=== PATIENT | female | born 1935 | race Hispanic/Latino ===

== ENCOUNTER → 2018-05-14 | Outpatient (CLI) | payer OTHER, MEDICARE | LOC: MAMMO 07:48 | PROVIDERS: ATTEND Internal Medicine | DX: Z12.31 Encounter for screening mammogram for malignant neoplasm of breast (principal) | CPT/HCPCS: 77067 ==

== ENCOUNTER → 2019-07-12 | Day surgery (SDC) | payer MEDICARE ==
[2019-07-06 11:44] LABS: BASOPHILS # (AUTO) 0.1 (0.0-0.1); BASOPHILS % 1.2 % (0.0-1.0); EOSINOPHILS # (AUTO) 0.1 (0.0-0.4); EOSINOPHILS % 1.4 % (0.0-6.0); HEMATOCRIT 33.5 % (34.2-44.1); HEMOGLOBIN 10.8 g/dL (12.0-16.0); LYMPHOCYTES # (AUTO) 1.4 (1.0-3.2); LYMPHOCYTES % 32.6 % (18.0-39.1); MEAN CORPUSCULAR HEMOGLOBIN 30.1 pg (28-32); MEAN CORPUSCULAR HGB CONC 32.2 g/dL (31-35); MEAN CORPUSCULAR VOLUME 93.3 fL (81-99); MONOCYTES # (AUTO) 0.4 (0.2-0.8); MONOCYTES % 10.2 % (4.4-11.3); NEUTROPHILS # (AUTO) 2.3 (2.1-6.9); NEUTROPHILS % 54.4 % (38.7-80.0); PLATELET COUNT 203 x10e3/uL (140-360); RED BLOOD COUNT 3.59 x10e6/uL (3.6-5.1); RED CELL DISTRIBUTION WIDTH 11.5 % (11.7-14.4)
--- NOTE | 2019-07-06 14:05 | Diagnostic Imaging Report ---
Chest, 2 views, 07/06/2019. History: Preop. L89.93 Comparison: None available. Findings: The cardiomediastinal silhouette and pulmonary vasculature are within normal limits. Calcified granuloma is noted in the left apex. The lungs are clear without evidence of consolidation or pleural effusion. Degenerative changes are noted in the thoracic spine. There are no acute osseous or soft tissue abnormalities. Impression: No acute cardiopulmonary abnormality. Signed by: Joshua Levy on 07/06/2019 2:01 PM
[~2019-07-12] MED LIST: BACITRACIN 50,000 UNIT VIAL ONE; BP MED PO; BUPIVACAINE HCL 0.5% INJ 30 ML VIAL INJ ONE; CEFAZOLIN SOD 1 GM/NS 50ML 100 ML IV ONE; CEPHALEXIN500 MG PO; DEXAMETHASONE SOD PHOS INJ 4 MG/ML VIAL ONE; FENTANYL CITRATE/PF 100MCG/2 ML INJ ONE; LIDOCAINE HCL 2% LOCAL INJ 5 ML SDV VIAL INJ ONE; ONDANSETRON HCL INJ 2MG/ML 2ML 2 MG/ML VIAL ONE; PROPOFOL IV EMULSION 10 MG/ML 20 ML VIAL ONE; SEVOFLURANE INHAL SOLN 250 ML PEN BTL ONE; ULTRAM50 MG PO
--- OUTSIDE RECORDS SUMMARY | 2019-07-12 08:19 | XMS REPORT ---
Author Author [facility] Address Unknown Phone Unavailable Care Team Providers Care Lighter Name Role Phone EVAN [place] Unavailable Unavailable Connie DE LEON Unavailable Unavailable Problems This patient has no known problems. Allergies, Adverse Reactions, Alerts This patient has no known allergies or adverse reactions. Medications This patient has no known medications. Results Test Description Test Time Test Comments Text Results Atomic Results Result Comments CHEST 2 VIEWS 2019-07-06 14:00:00 [place] [address] Patient Name: JACQUI SMALLS MR #: [id number] : 1935 Age/Sex: 84/F Req #: [id number] Adm Physician: Ordered by: EVAN OH DP Report #: [id number] Location: OR Room/Bed: Procedure: [id number] DX/CHEST 2 VIEWS Exam Date: Exam Time: REPORT STATUS: Signed Chest, 2 views, 07/06/2019. History: Preop. L89.93 Comparison: None available. Findings: The cardiomediastinal silhouette and pulmonary vasculature are within normal limits. Calcified granuloma is noted in the left apex. The lungs are clear without evidence of consolidation or pleural effusion. Degenerative changes are noted in the thoracic spine. There are no acute osseous or soft tissue abnormalities. Impression: No acute cardiopulmonary abnormality. Signed by: Nimco Levy on 07/06/2019 2:01 PM Dictated By: NIMCO LEVY MD 00 Transcribed By: JONNA on 07/06/191400 COPY TO: EVAN OH DPM SCR MAMM BILATERAL CLARE CAD DIGITAL 2019-02-15 09:20:37 - SCR MAMM BILATERAL CLARE CAD DIGITALBILATERAL DIGITAL SCREENING MAMMOGRAM 3D/2D WITH CAD: 02/10/2019CLINICAL: Asymptomatic. Digital breast tomosynthesis was performed in addition to routine CC and MLO views. Current mammographic images were evaluated by either a [employer] M-Vu or a [employer] Dynamoer CAD (computer aided detection system). No prior exams are currently available for comparison. The tissue of both breasts is heterogeneously dense. This may lower the sensitivity of mammography. There are benign calcifications and vascular calcification in the right breast. There is a benign calcification in a left axillary lymph node and vascular calcification in the left breast.There also are benign-appearing asymmetries in the right breast. Additionally, there is a benign intramammary node in the left breast. No suspicious mass, architectural distortion, malignant type calcification, or lymph node abnormality detected. IMPRESSION: BENIGNThere is no mammographic evidence of malignancy. Resume annual screening mammography in one year. The patient is unable to recall the location where prior mammograms were obtained. Please advise if your office has a record of prior studies so that attempts can be made to obtain prior mammograms for comparison.Paulo Ruggiero M.D. rb/:02/15/2019 09:20:37 [place] Deckhand: Cece COLLINS, [facility]-FWletter sent: BIRADS 1-2 Normal Mammogram BI-RADS: 2 Benign MAMMOGRAPHY DIGITAL SCR BILAT 2018-05-14 10:17:00 [place] [address] Patient Name: JACQUI SMALLS MR #: [id number] : 1935 Age/Sex: 83/F Req #: [id number] Adm Physician: Ordered by: SHEILA DE LEON MD Report #: [id number] Location: MAMMO Room/Bed: Procedure: [id number] MG/MAMMOGRAPHY DIGITAL SCR BILAT Exam Date: 05/14/18 Exam Time: 941 REPORT STATUS: Signed #[id number] - MGSCRBIL #BILATERAL DIGITAL SCREENING MAMMOGRAM WITH CAD: 05/14/2018 CLINICAL: Routine screening. Comparison is made to exams dated: 03/04/2016 mammogram and 03/01/2014 mammogram - [facility]. The tissue of both breasts is heterogeneously dense. This may lower the sensitivity of mammography. Current study was also evaluated with a Computer Aided Detection (CAD) system. No new significant masses, calcifications, or other findings are seen in either breast. IMPRESSION: BENIGN There is no mammographic evidence of malignancy. A 1 year screening mammogram is recommended. The patient will be notified by letter of the results. Chris Davenport M.D. ks/:05/18/2018 10:51:11 [place] De[employer]hand: Marly WHITNEY(R)(M), [facility] letter sent: Normal Exam Mammogram BI-RADS: 2 Benign Dictated By: CHRIS DAVENPORT MD 105 Transcribed By: SUMA on 05/18/18 105 COPY TO: SHEILA DE LEON MD
[2019-07-12 11:53] VITALS: BP 126/91
--- NOTE | 2019-07-12 12:56 | Operative Report ---
DATE OF PROCEDURE: 07/12/2019 SURGEON: Anila Bowen DPM PREOPERATIVE DIAGNOSES: 1. Chronic ulcer full thickness, right 3rd. 2. Hammertoe with exostosis, right 3rd. POSTOPERATIVE DIAGNOSES: 1. Chronic ulcer full thickness, right 3rd. 2. Hammertoe with exostosis, right 3rd. PROCEDURES: 1. Ulcer debridement to include capsule and bone, right 3rd. 2. Exostosis, right 3rd. PATHOLOGY: None. ANESTHESIA: General anesthetic. HEMOSTASIS: Pneumatic ankle tourniquet. ESTIMATED BLOOD LOSS: Less than 10 mL. MATERIALS: A 2 x 2 human allograft for the area of the ulcer. COMPLICATIONS: None. CONDITION: Stable. PROCEDURE IN DETAIL: Under mild sedation, the patient was brought to the operative room, and placed on the operating table in supine position. Following IV sedation, anesthesia was obtained with a general anesthetic. At this point, the right foot scrubbed, prepped, and draped in the usual aseptic manner; it was then lowered to the table. Attention was directed to the medial aspect of the right 3rd, where two curvilinear incisions were made overlying the ulcer. The ulcer was down to the level of the capsule. The ulcer was then removed, it was sent for pathology. At this point, the exostosis, that was causing the area of pressure at the 3rd digit, was removed utilizing an oscillating saw. The area was made smooth. There was no longer any bony prominences left to the area. The area was then flushed with copious amount of normal sterile saline solution, bacitracin. Human allograft was then inserted into the area of the ulcer and the ulcer was closed with 4-0 nylon. Clean dressing was applied consisting of Adaptic, Betadine wet-to-dry, 4x4s, Kerlix, and an Tevin bandage. The patient tolerated the procedure and anesthesia well without complications, was transferred to recovery room, will be discharged home when she meets criteria. She was given instructions to be partial weightbearing with a postop shoe and a walker to elevate at home to follow up with me in the clinic and to call the office if any questions, concerns, or new problems arise. Anila Bowen DPM ER/MODL /[id number]
== END | disposition home or self-care (01) ==
LOC: OR 08:16
PROVIDERS: ATTEND Podiatrist Foot & Ankle Surgery
DX: M86.671 Other chronic osteomyelitis, right ankle and foot (principal); L97.519 Non-pressure chronic ulcer of other part of right foot with unspecified severity; M20.41 Other hammer toe(s) (acquired), right foot; M89.8X7 Other specified disorders of bone, ankle and foot; M19.90 Unspecified osteoarthritis, unspecified site; I10 Essential (primary) hypertension; E78.5 Hyperlipidemia, unspecified; Z88.6 Allergy status to analgesic agent; Z01.810 Encounter for preprocedural cardiovascular examination; Z01.812 Encounter for preprocedural laboratory examination; Z01.818 Encounter for other preprocedural examination
CPT/HCPCS: 11044; 36415; 71046; 85025; 88305; 88311; 93005; J0690; J1100; J2001; J2405; J2704; J3010; Q4150

== ENCOUNTER 2024-09-26 17:23 | Emergency (ER) | payer MEDICARE ==
[~2024-09-26] VITALS: Ht 152.4 cm; Wt 47.6 kg
[~2024-09-26 17:23] MED LIST changes: +ASPIRIN EC81 MG PO; +ASPIRIN81 MG PO; +ATORVASTATIN CA20 MG PO; -BACITRACIN 50,000 UNIT VIAL ONE; -BUPIVACAINE HCL 0.5% INJ 30 ML VIAL INJ ONE; -CEFAZOLIN SOD 1 GM/NS 50ML 100 ML IV ONE; -DEXAMETHASONE SOD PHOS INJ 4 MG/ML VIAL ONE; -FENTANYL CITRATE/PF 100MCG/2 ML INJ ONE; -LIDOCAINE HCL 2% LOCAL INJ 5 ML SDV VIAL INJ ONE; +LOSARTAN POTAS100 MG PO; +METOPROLOL TART25 MG PO; -ONDANSETRON HCL INJ 2MG/ML 2ML 2 MG/ML VIAL ONE; +PLAVIX75 MG PO; -PROPOFOL IV EMULSION 10 MG/ML 20 ML VIAL ONE; -SEVOFLURANE INHAL SOLN 250 ML PEN BTL ONE
[2024-09-26 18:08] LABS: BASOPHILS # (AUTO) 0.1 (0.0-0.1); BASOPHILS % 0.8 % (0.0-1.0); EOSINOPHILS # (AUTO) 0.2 (0.0-0.4); EOSINOPHILS % 2.1 % (0.0-6.0); HEMATOCRIT 34.6 % (34.2-44.1); HEMOGLOBIN 11.2 g/dL (12.0-16.0); LYMPHOCYTES # (AUTO) 1.8 (1.0-3.2); LYMPHOCYTES % 22.5 % (18.0-39.1); MEAN CORPUSCULAR HGB CONC 32.4 g/dL (31-35); MEAN CORPUSCULAR VOLUME 92.8 fL (81-99); MONOCYTES # (AUTO) 0.7 (0.2-0.8); MONOCYTES % 9.1 % (4.4-11.3); NEUTROPHILS # (AUTO) 5.2 (2.1-6.9); PLATELET COUNT 330 x10e3/uL (140-360); RED BLOOD COUNT 3.73 x10e6/uL (3.6-5.1); RED CELL DISTRIBUTION WIDTH 14.9 % (11.7-14.4); WHITE BLOOD COUNT 7.95 x10e3/uL (4.8-10.8)
[2024-09-26 18:30] LABS: COLOR,URINE YELLOW (YELLOW)
[2024-09-26 18:31] LABS: BILIRUBIN,URINE NEGATIVE (NEGATIVE); CLARITY,URINE SL CLOUDY (CLEAR); GLUCOSE, URINE NEGATIVE (NEGATIVE); KETONES,URINE NEGATIVE (NEGATIVE); LEUKOCYTE ESTERASE ,URINE MODERATE (NEGATIVE); NITRITE,URINE NEGATIVE (NEGATIVE); PH,URINE 6 (5 - 7); PROTEIN,URINE DIPSTICK 2+ (NEGATIVE); URINE UROBILINOGEN 1 mg/dL (0.2 - 1)
[2024-09-26 18:32] LABS: ALBUMIN 2.7 g/dL (3.5-5.0); ALBUMIN/GLOBULIN RATIO 0.6 (0.8-2.0); ANION GAP 15.2 mmol/L (8-16); BILIRUBIN,TOTAL 0.5 mg/dL (0.2-1.2); CALCIUM 9.6 mg/dL (8.4-10.2); CREATININE, SERUM 0.5 mg/dL (0.57-1.11); POTASSIUM 4.2 mmol/L (3.5-5.1); TOTAL PROTEIN 7.5 g/dL (6.5-8.1)
[2024-09-26 18:33] LABS: BACTERIA,URINE MODERATE /HPF; WBC,URINE (MAN) >50 /HPF (0-5)
[2024-09-26 18:34] LABS: CALCIUM OXALATE CRYSTALS,UR RARE (FEW); EPITHELIAL CELLS,URINE RARE /LPF
[2024-09-26] MEDS ORDERED: IOPAMIDOL 370 MG/ML 100 ML INFUS..BTL INJ ONE (18:53)
[2024-09-26] MEDS ORDERED: ACETAMINOPHEN 1000 MG/100 ML 100 ML IV ONE (20:07)
[2024-09-26] MEDS ORDERED: CEFTRIAXONE 1 GM VIAL ONE (20:14)
[2024-09-26] MEDS: ACETAMINOPHEN 1000 MG/100 ML IV STA (20:23)
[2024-09-26 20:47] VITALS: TEMP 98.5
[2024-09-26 21:44] VITALS: PULSE 64; RESP 18
[2024-09-26 22:18] VITALS: BP 124/58; PULSE 59; RESP 18; TEMP 98; O2SAT 100
== END 2024-09-26 22:18 | disposition other institution (70) ==
LOC: ER 17:49
DX: R14.0 Abdominal distension (gaseous) (principal); K59.00 Constipation, unspecified; N39.0 Urinary tract infection, site not specified; G93.9 Disorder of brain, unspecified; I10 Essential (primary) hypertension; I25.2 Old myocardial infarction; I69.354 Hemiplegia and hemiparesis following cerebral infarction affecting left non-dominant side
CPT/HCPCS: 36415; 70450; 74177; 80053; 81001; 85025; 87086; 99285; J0131; J0696; Q9967

== ENCOUNTER 2024-12-13 13:55 | Emergency (ER) | payer MEDICARE ==
[~2024-12-13] VITALS: Ht 152.4 cm; Wt 43.1 kg
[2024-12-13 14:28] LABS: BASOPHILS # (AUTO) 0.1 (0.0-0.1); EOSINOPHILS # (AUTO) 0.1 (0.0-0.4); HEMATOCRIT 31.6 % (34.2-44.1); HEMOGLOBIN 10.1 g/dL (12.0-16.0); LYMPHOCYTES # (AUTO) 1.8 (1.0-3.2); LYMPHOCYTES % 28.9 % (18.0-39.1); MEAN CORPUSCULAR HEMOGLOBIN 29.8 pg (28-32); MEAN CORPUSCULAR VOLUME 93.2 fL (81-99); MONOCYTES # (AUTO) 0.6 (0.2-0.8); MONOCYTES % 10.4 % (4.4-11.3); NEUTROPHILS # (AUTO) 3.5 (2.1-6.9); NEUTROPHILS % 57.2 % (38.7-80.0); PLATELET COUNT 307 x10e3/uL (140-360); RED BLOOD COUNT 3.39 x10e6/uL (3.6-5.1); RED CELL DISTRIBUTION WIDTH 14.5 % (11.7-14.4); WHITE BLOOD COUNT 6.08 x10e3/uL (4.8-10.8)
[2024-12-13 14:42] LABS: INR 0.95; PROTHROMBIN TIME 13.3 seconds (11.9-14.5)
[2024-12-13 14:43] LABS: PARTIAL THROMBOPLASTIN TIME 30.6 seconds (23.8-35.5)
[2024-12-13 14:47] LABS: ALBUMIN 3.1 g/dL (3.5-5.0); ALBUMIN/GLOBULIN RATIO 0.7 (0.8-2.0); ANION GAP 13.3 mmol/L (8-16); BILIRUBIN,TOTAL 0.3 mg/dL (0.2-1.2); CALCIUM 9.1 mg/dL (8.4-10.2); CREATININE, SERUM 0.61 mg/dL (0.57-1.11); POTASSIUM 4.3 mmol/L (3.5-5.1); TOTAL PROTEIN 7.6 g/dL (6.5-8.1)
[2024-12-13 14:52] LABS: TROPONIN I 0.003 ng/mL (0-0.300)
[2024-12-13] MEDS: DEXAMETHASONE SOD PHOS 10 MG/1 ML VIAL IV ONE (15:01)
[2024-12-13] MEDS: LEVETIRACETAM 1500 MG/100 ML 100 ML IV ONE (15:01)
[2024-12-13] MEDS: SODIUM CHLORIDE 0.9% 500ML 500 ML IV ONE (15:02)
[2024-12-13] MEDS: VALPROATE SOD INJ 500 MG in SODIUM CHLORIDE 0.9% 100 ML INJ STA (15:39)
[2024-12-13] MEDS: VALPROATE SOD INJ 500 MG in SODIUM CHLORIDE 0.9% 100 ML IV ONE (15:52)
[2024-12-13 16:30] VITALS: TEMP 97.7
[2024-12-13 17:10] VITALS: PULSE 62; RESP 18; O2SAT 100
[2024-12-13] MEDS ORDERED: VALPROATE SOD INJ 500 MG in SODIUM CHLORIDE 0.9% 100 ML INJ SCH (21:00)
== END 2024-12-13 17:19 | disposition other institution (70) ==
LOC: EDBD 13:55 → ER 14:07
DX: I61.1 Nontraumatic intracerebral hemorrhage in hemisphere, cortical (principal); I61.8 Other nontraumatic intracerebral hemorrhage; I10 Essential (primary) hypertension; I25.10 Atherosclerotic heart disease of native coronary artery without angina pectoris; D64.9 Anemia, unspecified; N28.9 Disorder of kidney and ureter, unspecified; Z86.79 Personal history of other diseases of the circulatory system
CPT/HCPCS: 36415; 71045; 80053; 80164; 82550; 83735; 84484; 85025; 85610; 85730; 93005; 99284; J1100; J7040; J7050

== ENCOUNTER → 2024-12-13 | Outpatient (REF) | payer MEDICARE | LOC: EDBD → CT 13:06 | PROVIDERS: ATTEND Internal Medicine | DX: I61.1 Nontraumatic intracerebral hemorrhage in hemisphere, cortical (principal); Z86.73 Personal history of transient ischemic attack (TIA), and cerebral infarction without residual deficits | CPT/HCPCS: 70450 ==